=== PATIENT | female | born 1985 | race Caucasian/White ===

== ENCOUNTER 2022-08-03 23:31 | Emergency (ER) | payer OTHER ==
[2022-08-04] MEDS ORDERED: Sodium Chloride 0.9% 1,000 ML IV ONE (00:09)
[2022-08-04 01:05] LABS: CARBON DIOXIDE,CO2 24.8 mmol/L (21.0-32.0); POTASSIUM,K 3.7 mmol/L (3.5-5.1)
[2022-08-04 01:38] VITALS: BP 112/73; PULSE 72
== END 2022-08-04 01:54 | disposition home or self-care (01) ==
LOC: MW.ED 23:31
DX: R42 Dizziness and giddiness (principal)
CPT/HCPCS: 36415; 80053; 81001; 83735; 84439; 84443; 84703; 85025; 93005; 96360; 99285; J7030; 93010; 99283

== ENCOUNTER 2023-06-21 08:54 | Inpatient (IN) | payer OTHER ==
[2023-06-21] MEDS ORDERED: Sodium Chloride 0.9% 2.5 ML Syringe FLUSH PRN (08:57)
[2023-06-21] MEDS ORDERED: Tranexamic Acid IN NACL,ISO-OS 1,000 MG in Premix Bag 1 BAG IV PRN (08:57)
[2023-06-21] MEDS ORDERED: Methylergonovine 0.2 MG/1 ML Amp IM PRN (08:57)
[2023-06-21] MEDS ORDERED: Sodium Chloride 0.9% 10 ML Syringe FLUSH PRN (08:57)
[2023-06-21] MEDS ORDERED: Carboprost Tromethamine 250 MCG/1 mL Vial IM PRN (08:57)
[2023-06-21] MEDS ORDERED: Butorphanol 2 MG/ML SDV IVPUSH PRN (08:57)
[2023-06-21] MEDS ORDERED: Lidocaine 1% 50 ML MDV INJECT PRN (08:57)
[2023-06-21] MEDS ORDERED: Sodium Chloride 0.9% 20 ML SDV IV PRN (08:57)
[2023-06-21] MEDS ORDERED: Misoprostol 200 MCG Tab PO PRN (08:57)
[2023-06-21] MEDS ORDERED: Water For Irrigation,Sterile 1,000 ML Container IRR PRN (08:57)
[2023-06-21] MEDS ORDERED: Oxytocin/0.9 % Sodium Chloride 30 UNIT/500 ML BAG IV SCH (09:00)
[2023-06-21] MEDS ORDERED: Ondansetron 4 MG/2 ML SDV IVPUSH PRN (09:02)
[2023-06-21] MEDS ORDERED: Terbutaline 1 MG/ML SDV SUBCUT PRN (09:08)
[2023-06-21] MEDS ORDERED: Lidocaine 1% 2 ML ONE (09:55)
[2023-06-21] MEDS ORDERED: Phenylephrine HCl 0.5 MG/5 ML AMP IVPUSH PRN (10:32)
[2023-06-21] MEDS ORDERED: ePHEDrine 50 MG/ML SDV IVPUSH PRN ×2 (10:32)
[2023-06-21] MEDS: Oxytocin/0.9 % Sodium Chloride 30 UNIT/500 ML BAG IV SCH (10:52)
[2023-06-21] MEDS: Lactated Ringers 1,000 ML IV SCH (10:53)
[2023-06-21 11:21] LABS: HEMATOCRIT 31.9 % (37.0-47.0); MEAN CORPUSCULAR HEMOGLOBIN 29.9 pg (28.0-32.0); MEAN CORPUSCULAR HGB CONC 34.5 g/dL (32.0-36.0); MEAN CORPUSCULAR VOLUME 86.7 fL (83.0-99.0); MEAN PLATELET VOLUME 11.1 fL (9.4-12.3); PLATELET COUNT,PLT 261 K/uL (150-400); RED BLOOD CELL COUNT 3.68 M/uL (4.10-5.30); WHITE BLOOD CELL COUNT,WBC 10.14 K/uL (3.9-11.3)
[2023-06-21] MEDS ORDERED: Bupivacaine 0.5% 10 ML SDV ONE (17:55)
[2023-06-21] MEDS: Ropivacaine HCl/PF 400 MG in Premix Bag 1 BAG EPIDUR SCH (18:12)
[2023-06-21] MEDS ORDERED: Docusate Sodium 100 MG Cap PO PRN (21:16)
[2023-06-21] MEDS ORDERED: oxyCODONE 5 MG Tab PO PRN (21:16)
[2023-06-21] MEDS ORDERED: Benzocaine/Menthol 20%-0.5% Spray 78 GM Cannister TOP PRN (21:16)
[2023-06-21] MEDS ORDERED: Lanolin 100% Cream 7 GM Tube TOP PRN (21:16)
[2023-06-21] MEDS ORDERED: Witch Hazel Medicated Pads 40/Jar TOP PRN (21:16)
[2023-06-21 21:54] LABS: PH,UMBILICAL ARTERIAL 7.277 (7.18-7.38); PH,UMBILICAL VENOUS 7.348 (7.25-7.45)
[2023-06-22] MEDS: Ibuprofen 800 MG Tab PO PRN (01:18)
[2023-06-22] MEDS: Acetaminophen 500 MG Tab PO PRN (04:04)
[2023-06-22 06:50] LABS: HEMATOCRIT 30.6 % (37.0-47.0); HEMOGLOBIN 10.4 g/dL (12.0-16.0)
[2023-06-22 21:58] VITALS: BP 138/84; PULSE 74
== END 2023-06-22 21:49 | disposition home or self-care (01) | DRG 807 ==
LOC: MW.OB 08:54 → OBSVTOIN 21:16 → MW.OB 06-22 00:49
PROVIDERS: ADMIT Obstetrics & Gynecology; ATTEND Obstetrics & Gynecology
PROC: 10E0XZZ Delivery of Products of Conception, External Approach (ICD-10-PCS; principal; 2023-06-21)
PROC: 10907ZC Drainage of Amniotic Fluid, Therapeutic from Products of Conception, Via Natural or Artificial Opening (ICD-10-PCS; 2023-06-21)
PROC: 3E0R3BZ Introduction of Anesthetic Agent into Spinal Canal, Percutaneous Approach (ICD-10-PCS; 2023-06-21)
PROC: 00HU33Z Insertion of Infusion Device into Spinal Canal, Percutaneous Approach (ICD-10-PCS; 2023-06-21)
DX: O80 Encounter for full-term uncomplicated delivery (principal); Z37.0 Single live birth; Z3A.39 39 weeks gestation of pregnancy
CPT/HCPCS: 36415; 51702; 59025; 59409; 82803; 85014; 85018; 85027; 86592; 86850; 86900; 86901; A9270-GY; J0665; J2590; J2795; J3490; J7120

== ENCOUNTER 2025-03-01 08:43 | Emergency (ER) | payer OTHER ==
[2025-03-01 11:29] VITALS: BP 123/73; PULSE 75
== END 2025-03-01 11:28 | disposition home or self-care (01) ==
LOC: MW.ED 08:43
DX: O99.513 Diseases of the respiratory system complicating pregnancy, third trimester (principal); J18.9 Pneumonia, unspecified organism; Z79.899 Other long term (current) drug therapy
CPT/HCPCS: 71046; 71046-26; 99283

== ENCOUNTER 2025-03-08 04:14 | Inpatient (IN) | payer OTHER ==
[2025-03-08] MEDS ORDERED: Sodium Chloride 0.9% 10 ML Syringe FLUSH PRN (04:34)
[2025-03-08] MEDS ORDERED: Sodium Chloride 0.9% 2.5 ML Syringe FLUSH PRN (04:34)
[2025-03-08] MEDS ORDERED: Water For Irrigation,Sterile 1,000 ML Container IRR PRN (04:34)
[2025-03-08] MEDS ORDERED: Butorphanol 1 MG/ML SDV IVPUSH PRN (04:34)
[2025-03-08] MEDS ORDERED: Carboprost Tromethamine 250 MCG/1 mL Vial IM PRN (04:34)
[2025-03-08] MEDS: Lactated Ringers 1,000 ML IV SCH (04:50)
[2025-03-08 04:51] LABS: MEAN PLATELET VOLUME 11.7 fL (9.4-12.3); NRBC ABSOLUTE 0.00 K/uL (0.00-0.02); NRBC PERCENT 0.0 /100WBC (0.0-0.2); PLATELET COUNT,PLT 277 K/uL (150-400); RED BLOOD CELL COUNT 4.07 M/uL (4.10-5.30); WHITE BLOOD CELL COUNT,WBC 10.91 K/uL (3.9-11.3)
[2025-03-08] MEDS: Ropivacaine HCl/PF 400 MG in Premix Bag 1 BAG EPIDUR SCH (05:51)
[2025-03-08] MEDS ORDERED: ePHEDrine 50 MG/ML SDV IVPUSH PRN (06:02)
[2025-03-08] MEDS ORDERED: dexmedeTOMIDine HCl 200 MCG/2 ML SDV EPIDUR SCH (06:15)
[2025-03-08] MEDS: Oxytocin/0.9 % Sodium Chloride 30 UNIT/500 ML BAG IV SCH (07:05)
[2025-03-08] MEDS ORDERED: Lanolin 100% Cream 7 GM Tube TOP PRN (08:10)
[2025-03-08] MEDS ORDERED: Benzocaine/Menthol 20%-0.5% Spray 78 GM Cannister TOP PRN (08:10)
[2025-03-08] MEDS: Witch Hazel Medicated Pads 40/Jar TOP PRN (10:54)
[2025-03-08 19:52] VITALS: BP 135/89; PULSE 87
== END 2025-03-09 11:15 | disposition home or self-care (01) | DRG 807 ==
LOC: MW.OB 04:14 → OBSVTOIN 08:15 → MW.OB 14:09
PROVIDERS: ADMIT Obstetrics & Gynecology Gynecology; ATTEND Obstetrics & Gynecology Gynecology
PROC: 10E0XZZ Delivery of Products of Conception, External Approach (ICD-10-PCS; principal; 2025-03-08)
PROC: 10907ZC Drainage of Amniotic Fluid, Therapeutic from Products of Conception, Via Natural or Artificial Opening (ICD-10-PCS; 2025-03-08)
PROC: 3E0S3BZ Introduction of Anesthetic Agent into Epidural Space, Percutaneous Approach (ICD-10-PCS; 2025-03-08)
PROC: 3E0R3BZ Introduction of Anesthetic Agent into Spinal Canal, Percutaneous Approach (ICD-10-PCS; 2025-03-08)
PROC: 3E0DXGC Introduction of Other Therapeutic Substance into Mouth and Pharynx, External Approach (ICD-10-PCS; 2025-03-08)
PROC: 3E033VJ Introduction of Other Hormone into Peripheral Vein, Percutaneous Approach (ICD-10-PCS; 2025-03-08)
DX: O99.214 Obesity complicating childbirth (principal); Z37.0 Single live birth; Z3A.37 37 weeks gestation of pregnancy; O09.523 Supervision of elderly multigravida, third trimester
CPT/HCPCS: 01967; 36415; 59025; 59409; 85014; 85018; 85027; 86592; 86850; 86900; 86901; A9270-GY; J2590; J2795; J7120